=== PATIENT | female | born 1940 | race Caucasian/White ===

== ENCOUNTER 2024-01-21 11:07 | Emergency (ER) | payer OTHER, SELFPAY ==
[2024-01-21 11:32] VITALS: BP 95/73
[2024-01-21 12:01] LABS: % Basophils 0.4 % (0-2); % Eosinophils 1.3 % (0-6); % Immature Granulocytes 0.4 % (0-0.5); % Lymphocytes 20.4 % (20.5-51.1); % Monocytes 9.8 % (1.7-9.3); % Neutrophils 67.7 % (42.2-75.2); Absolute Eosinophils 0.1 10^3/uL (0-0.7); Absolute Lymphocytes 1.9 10^3/uL (1.2-3.4); Absolute Monocytes 0.9 10^3/uL (0.1-0.6); Absolute Neutrophils 6.2 10^3/uL (1.4-6.5); Hematocrit 45.2 % (37.0-47.0); Hemoglobin 14.4 g/dL (12.0-16.0); Mean Corp Hgb Conc. 31.9 g/dL (33.0-37.0); Mean Corpuscular Volume 94.2 fL (81.0-99.0); Mean Platelet Volume 10.3 fL (7.4-10.4); Nucleated Red Blood Cells % 0 %; Platelet Count 172 10^3/uL (130-400); Red Cell Dist. Width 12.5 % (11.5-14.5); White Blood Cell Count 9.1 10^3/uL (4.8-10.8)
[2024-01-21 12:20] LABS: ALT (SGPT) 18 U/L (0-35); AST (SGOT) 22 U/L (14-36); Albumin 3.6 g/dl (3.5-5.0); Alkaline Phosphatase 87 U/L (38-126); Blood Urea Nitrogen 21 mg/dl (7-17); Calcium 10.1 mg/dl (8.4-10.2); Carbon Dioxide 29 mmol/L (22-30); Chloride 102 mmol/L (98-107); Glucose 96 mg/dl (70-99); Sodium 138 mmol/L (135-145); Total Bilirubin 0.5 mg/dl (0.2-1.3); Total Protein 6.3 g/dl (6.3-8.2); eGFR > 60.00
[2024-01-21 12:21] LABS: COVID-19 Antigen Negative (Negative)
[2024-01-21 12:25] LABS: Potassium 4.2 mmol/L (3.5-5.1)
[2024-01-21 12:26] LABS: NT-proBNP 526 pg/ml; Troponin I < 0.012 ng/ml
--- NOTE | 2024-01-21 12:50 | ED.GENMED ---
History of Present Illness
General
Chief Complaint: Cold/Flu/URI Symptoms
Source: patient and family (Daughter)
Exam Limitations: none
Time Seen by Provider: 01/21/24 12:37
Nursing documentation reviewed up to this point in time: agreed with
Travel History
Have you had any contact with someone who has COVID-19?: No
Do you have any symptoms of coronavirus? Fever > 100 degrees, chills, cough, shortness of breath, sore throat, loss of taste or smell, muscle aches, or headache?: No
History of Present Illness
History of Present Illness:
83-year-old female with a past medical history of hypertension, hyperlipidemia, CHF, atrial fibrillation on Eliquis, COPD who presents to the emergency department from home accompanied by her daughter for evaluation of shortness of breath and cough.
Patient reports onset of symptoms he noticed that she started feeling some congestion and had worsening cough. Over the weekend she noticed that she was having increasing shortness of breath and orthopnea. This morning woke up and
symptoms were much more severe and she finally decided to come for evaluation. She says she had said similar symptoms in the past with CHF exacerbations. She sees Dr. García for cardiology. She denies any associated chest pain. She has not noticed
any significant weight gain. She denies any increased leg swelling. She has not had any fevers or chills. Denies any GI symptoms. She reports compliance with all her medications including her diuretic that she currently takes torsemide 20 mg
twice daily and has had no recent adjustments.
Review of Systems
Review of Systems
All Other Systems: ROS reviewed and negative except as documented in HPI and ROS
Constitutional: Denies fever or chills
EENT: Reports other (Nasal congestion); Denies sore throat
Respiratory: Reports cough and trouble breathing
Cardiac: Reports other (Orthopnea); Denies chest pain, diaphoresis or palpitations
ABD/GI: Denies abdominal pain, nausea or vomiting
: Denies flank pain
Musculoskeletal: Reports edema (Chronic but unchanged); Denies neck pain or back pain
Neurological: Denies headache, weakness or numbness
Phy Exam
Physical Exam
Physical Exam:
General: Awake, alert, oriented x3; no acute distress
Head: Normocephalic, atraumatic
Eyes: Conjunctiva normal, EOMI
Throat: Airway intact, handling secretions
Neck: Trachea midline, no JVD noted
Lungs: Pulse ox 95% on room air; respiratory rate 20-24; speaking in full sentences not in distress; she has diffuse bilateral expiratory wheezing with some faint rales at the lung bases, frequent coughing
Heart: Tachycardia with irregularly irregular rhythm, no murmurs, gallops, or rubs
Abd: Soft, non distended, nontender
Neuro: Cranial nerves grossly intact, speech fluid
Skin: no rash, chronic venous stasis changes in the lower extremities
Extremities: +2 edema bilateral lower extremities, equal pulses in all extremities
Scores
Heart Failure Risk
Heart Failure Risk Score: Yes
History of Stroke or TIA: No
History of intubation for respiratory distress: No
Heart rate on ED arrival >/= 110: No
SaO2 <90% on arrival on room air: No
HR >/=110 during 3min walk test (or too ill to perform test): Yes
ECG has acute ischemic changes: No
Urea >/=12mmol/L (BUN 33.6mg/dL): No
Serum CO2>/=35mmol/L: No
Troponin I or T elevated to [place] Level (0.4mg/dL): No
NT-proBNP >/=5,000ng/L (5,000pg/ml): No
HF Risk Score: 2
Admission Status: MEDIUM RISK 9.2% Consider observation or discharge to home with homecare & f/u visit to PCP/[facility], or SNF for treatment
Heart Score for Chest Pain Patients
STEMI patient?: Not applicable
Withdrawal Assessment of Alcohol
Withdrawal Assessment Completed?: Not applicable
Course
Orders/Labs/Results
Orders:
Orders
01/21/24 11:45
ECG [Electrocardiogram (*1)] Urgent
Reason for Study: Atrial Fibrillation
EKG- Treatment ONCE
01/21/24 11:51
COVID-19 Antigen Urgent
Source: Nasal Swab
Complete Blood Count/With Diff Urgent
Comprehensive Metabolic Panel Urgent
NT-proBNP Urgent
Troponin I Urgent
Influenza A+B Rapid Molecular Urgent
LETICIA Source: Nasal Swab
Specimen Description:
01/21/24 12:39
CR Chest - 2 Views Urgent
Comment:
Reason For Exam: cough
01/21/24 12:50
Ipratropium/Albuterol Sulfate [Duoneb] 3 ml INH R NOW STA
01/21/24 12:56
Metoprolol [Lopressor] 5 mg IV NOW STA
01/21/24 14:29
Ipratropium/Albuterol Sulfate [Duoneb] 3 ml INH R NOW STA
MethylPREDNISolone PF [Solu-Medrol Pf] 125 mg IV NOW STA
01/21/24 14:30
Diltiazem HCl [Cardizem] 10 mg IV NOW STA
Abnormal Lab Results
01/21/24
11:51
MCHC 31.9 L g/dL
(33.0-37.0)
Absolute Monos (auto) 0.9 H 10^3/uL
(0.1-0.6)
Lymphocytes % 20.4 L %
(20.5-51.1)
Monocytes % 9.8 H %
(1.7-9.3)
BUN 21 H mg/dl
(7-17)
01/21/24 11:51
01/21/24 11:51
Vital Signs
Initial and Last Documented VS:
Initial Vital Signs
Temp Pulse Resp BP Pulse Ox
36.8 C 88 20 95/73 95
01/21/24 11:32 01/21/24 11:32 01/21/24 11:32 01/21/24 11:32 01/21/24 11:32
Last Documented Vital Signs
Temp Pulse Resp BP Pulse Ox
36.8 C 106 18 102/81 95
01/21/24 11:32 01/21/24 15:30 01/21/24 15:30 01/21/24 15:00 01/21/24 15:30
MDM/Problems Addressed
Differential Diagnosis Includes:
CHF exacerbation, COPD exacerbation, bronchitis, pneumonia, anemia
MDM/Problems Addressed:
83-year-old female with history as above presents for evaluation of worsening cough, congestion, shortness of breath over the past few days. Vital signs significant for slight hypotension to 95/73, tachycardia to the low 100s, mild tachypnea.
Pulse ox acceptable and afebrile. Physical exam as above. Plan to place an IV check labs including a CBC and a CMP, troponin, BNP. Will check viral swabs. Will check chest x-ray. Check an EKG. Provided DuoNeb given that she does have wheezing
and known history of COPD. Will monitor closely and reassess after the above.
Initial labs reviewed: CBC unremarkable, CMP no clinically significant abnormalities. Troponin undetectable. BNP slightly elevated at 526. Viral swabs are negative. EKG shows A-fib with RVR rates in the 100s. Blood pressure initially soft,
improved without intervention here will treat with some Lopressor for rate control. Awaiting chest x-ray.
Chest x-ray shows no pneumonia, no signs of CHF-BNP only slightly elevated at 526�clinical picture really is more consistent with acute COPD exacerbation likely triggered by mild viral illness. She had significant improvement in her wheezing after
DuoNebs and steroids here. Her heart rate has been around 100�she says she is in permanent A-fib. She has a normal pulse ox and her respiratory rate is 14-16 on clinical reassessment with significantly improved wheezing on exam. No clear
indication for admission at this point and patient's strong preference is to be discharged to trial outpatient steroids and nebs. I think this is a reasonable plan. She will follow-up with her primary physician. We spoke about return precautions
and all questions answered.
Chronic conditions affecting care:
COPD, CHF, A-fib
Acute Exacerbation and/or Progression of Chronic Illness:
Acute exacerbation of A-fib�presents in A-fib with RVR treated with Lopressor as above
Acute Exacerbation and/or Progression of Chronic Illness: Arrhythmia
*Radiology
Radiology exam reviewed: preliminary read by ED provider and radiology read reviewed
*Pulse Oximetry
Patient hypoxic: no
*EKG
Interpreted by ED Provider?: Yes
Heart Rate: 112
Rate: tachycardiac
Rhythm: a-fib
[place]: normal axis
Interval: normal interval
QRS Pattern: normal QRS
Ischemia: no ischemia
*Critical Care Note
Total Time (30-74mins, 75-104mins- exclusive of procedures): 31
comment:
Critical care statement: A total of 31 minutes of critical care time was provided for this patient. This includes management of unstable vital signs, evaluation of the patient at bedside, frequent reassessment, discussion with
consultants/hospitalist, and review of pertinent medical records. This time was separate from time utilized to perform any aforementioned documented procedures
Data Reviewed
Review of Other/Old Records Reveals: Labs and Records
Source: patient, records and family
Patient Management
Social determinants of health affecting care: Strong social support
Discussion with other providers: Hospitalist (Discussed with hospitalist)
Escalation/DeEscalation of care consider admission/obs:
Admission indicated
ED Attending Note
-
Portions of this chart may have been created with voice recognition software.� Occasional wrong word or��sound alike� substitutions may have occurred due to the inherent limitations of voice recognition software.
Discharge Plan
Departure
Patient Disposition: Home (Routine Discharge)
Date of Disposition: 01/21/24
Time of Disposition: 15:39
Patient with high blood pressure during this ER visit?: No
Discharge Problem:
COPD exacerbation
Instructions: COPD Exacerbation, Adult ED
Prescriptions:
New
prednisone 50 mg tablet
50 mg PO DAILY Qty: 4 0RF
albuterol sulfate 2.5 mg /3 mL (0.083 %) solution for nebulization
2.5 mg inhalation Q6H Qty: 90 0RF
Referrals:
Marialuisa Patel MD [Family Provider] - Call in 1-3 days for appt
Activity Restrictions/Additional Instructions:
Thank you for visiting the Emergency Department at [facility].
1. Please schedule a follow up appointment as directed. Call first thing tomorrow morning to make an appointment.
2. If indicated, please take your medications as instructed and indicated on discharge paperwork.
3. If any of your symptoms do not improve, or persist, or become more severe within 6-12 hours, please return to the emergency department for further care.
4. Please return to the emergency department if you develop a headache, neck pain/stiffness, fever greater than 100.4F, chest pain, shortness of breath, persistent nausea, vomiting, slurred speech, difficulty walking, numbness/tingling, weakness,
signs of infection or any other symptoms that are worrisome to you.
Please call [phone] if you have any questions.
Interventions
Interventions:
*Risk Screen - Suicide Last Done: 01/21/24 12:49
*General Assessment Last Done: 01/21/24 12:49
ED- Fall Risk Assessment Last Done: 01/21/24 12:49
*ED COVID-19 Vaccine History Last Done: 01/21/24 11:32
ED- Pulmonary Assessment Last Done: 01/21/24 12:49
Discharge Date and Time
Print Language: JAPANESE
[2024-01-21 13:08] VITALS: BP 122/69
[2024-01-21] MEDS: DUONEB 3 ML INH ×2 (13:08→14:50)
[2024-01-21] MEDS: LOPRESSOR 5 MG IV (13:14)
[2024-01-21 14:00] VITALS: BP 112/76
[2024-01-21] MEDS: CARDIZEM 10 MG IV (14:50)
[2024-01-21] MEDS: SOLU-MEDROL PF 125 MG IV (14:50)
[2024-01-21 15:00] VITALS: BP 102/81
== END 2024-01-21 16:08 | disposition home or self-care (01) ==
LOC: EMR 11:07
PROVIDERS: Emergency Medicine; EMERGENCY PHYSICIAN Emergency Medicine; FAMILY PHYSICIAN Family Medicine
DX: J44.1 Chronic obstructive pulmonary disease with (acute) exacerbation (principal); I48.91 Unspecified atrial fibrillation; I50.9 Heart failure, unspecified; I11.0 Hypertensive heart disease with heart failure; I95.9 Hypotension, unspecified; Z11.52 Encounter for screening for COVID-19; Z79.01 Long term (current) use of anticoagulants
CPT/HCPCS: 99291; 96374; 96375 ×2; 94640; 71046; 80053; 83880; 84484; 85025; 87502; 87811; 93005

== ENCOUNTER 2024-08-18 10:10 | Emergency (ER) | payer OTHER, SELFPAY ==
[2024-08-18] VITALS (7 sets, daily range): BP systolic 121–151; BP diastolic 67–92; PULSE 87–106; BMI 46.5
[2024-08-18 11:00] LABS: % Basophils 0.6 % (0-2); % Eosinophils 2.5 % (0-6); % Immature Granulocytes 0.2 % (0-0.5); % Monocytes 8.6 % (1.7-9.3); % Neutrophils 61.1 % (42.2-75.2); Absolute Eosinophils 0.2 10^3/uL (0-0.7); Absolute Lymphocytes 1.7 10^3/uL (1.2-3.4); Absolute Monocytes 0.6 10^3/uL (0.1-0.6); Absolute Neutrophils 3.9 10^3/uL (1.4-6.5); Hematocrit 42.4 % (37.0-47.0); Hemoglobin 13.9 g/dL (12.0-16.0); Mean Corp Hgb Conc. 32.8 g/dL (33.0-37.0); Mean Corpuscular Hgb 29.5 pg (27.0-31.0); Mean Platelet Volume 10.6 fL (7.4-10.4); Nucleated Red Blood Cells % 0 %; Platelet Count 195 10^3/uL (130-400); Red Blood Cell Count 4.71 10^6/uL (4.20-5.40); Red Cell Dist. Width 12.4 % (11.5-14.5); White Blood Cell Count 6.4 10^3/uL (4.8-10.8)
--- NOTE | 2024-08-18 11:09 | ED.GENMED ---
History of Present Illness
General
Chief Complaint: Dizziness
Source: patient
Time Seen by Provider: 08/18/24 10:33
History of Present Illness
History of Present Illness:
83-year-old female presents emergency room complaining of dizziness. Patient states her symptoms began 2 days ago. She was lying in bed and when she sat up she felt very dizzy. She was unable to walk without assistance. She denies headache.
Denies any focal weakness numbness or tingling. Symptoms are definitely worsened by head movement and position. Symptoms have not improved since onset.
Phy Exam
Physical Exam
Physical Exam:
General: Awake, Alert, Oriented X3. No acute distress.
Vitals: unremarkable
Head: Atraumatic
Eyes: Pupils equal, EOMI, horizontal nystagmus
Throat: Airway intact, no exudates
Neck: Trachea midline
Lungs: Clear and equal b/l
Heart: Regular rate, no murmurs
Abd: Soft, Nontender, No pulsatile mass
Neuro: Cranial nerves intact, muscle strength equal bilaterally, cerebellar exam normal
Skin: Warm, dry, no rash
Extremities: pulses equal b/l, no edema
Course
Orders/Labs/Results
Orders:
Orders
08/18/24 10:15
Electrocardiogram (*1) Urgent
Reason for Study: Vertigo / Dizzy
EKG- Treatment ONCE
08/18/24 10:47
Complete Blood Count/With Diff Urgent
Comprehensive Metabolic Panel Urgent
08/18/24 11:08
CT Head W/o Iv Contrast Urgent
Comment:
Reason For Exam: dizziness
PT Consult [Pt Eval And Treat] Urgent
Treatment: vertigo
Activity Level: As Tolerated
Abnormal Lab Results
08/18/24
10:47
MCHC 32.8 L g/dL
(33.0-37.0)
MPV 10.6 H fL
(7.4-10.4)
BUN 21 H mg/dl
(7-17)
Total Protein 6.0 L g/dl
(6.3-8.2)
08/18/24 10:47
08/18/24 10:47
Vital Signs
Initial and Last Documented VS:
Initial Vital Signs
Temp Pulse Resp BP Pulse Ox
98.2 F 94 16 151/85 95
08/18/24 10:12 08/18/24 10:12 08/18/24 10:12 08/18/24 10:12 08/18/24 10:12
Last Documented Vital Signs
Temp Pulse Resp BP Pulse Ox
98.2 F 63 25 144/92 98
08/18/24 10:12 08/18/24 12:25 08/18/24 12:25 08/18/24 12:00 08/18/24 11:22
MDM/Problems Addressed
Differential Diagnosis Includes:
Dehydration, anemia, peripheral vertigo, central vertigo
MDM/Problems Addressed:
Patient's physical exam suggest peripheral vertigo. CT does not show any acute abnormalities. She has no other focal neurologic deficits. Physical therapy consultation was obtained to confirm changes consistent with peripheral vertigo. Patient
feels better after Shai maneuver. Stable for discharge home. Recommend Antivert for persistent symptoms. Prescription given for outpatient physical therapy
*Radiology
Radiology exam reviewed: radiology read reviewed
*Pulse Oximetry
Patient hypoxic: no
*EKG
Interpreted by ED Provider?: Yes
Heart Rate: 93
Rate: normal
Rhythm: a-fib
Interval: normal interval
QRS Pattern: normal QRS
*[employer] Interpretation
Rate: normal
Interpretation: abnormal
Rhythm: a-fib
*Critical Care Note
Total Time (30-74mins, 75-104mins- exclusive of procedures): Not Applicable
ED Attending Note
-
Portions of this chart may have been created with voice recognition software.� Occasional wrong word or��sound alike� substitutions may have occurred due to the inherent limitations of voice recognition software.
Discharge Plan
Departure
Patient Disposition: Home (Routine Discharge)
Date of Disposition: 08/18/24
Time of Disposition: 12:31
Patient with high blood pressure during this ER visit?: Yes
Condition: Good
Discharge Problem:
Benign paroxysmal positional vertigo
Instructions: Vestibular Exercises, Vertigo ED, BLOOD PRESSURE
Prescriptions:
No Action
prednisone 50 mg tablet
50 mg PO DAILY Qty: 4 0RF
albuterol sulfate 2.5 mg /3 mL (0.083 %) solution for nebulization
2.5 mg inhalation Q6H Qty: 90 0RF
Referrals:
Marialuisa Patel MD [Family Provider] -
Activity Restrictions/Additional Instructions:
You have vertigo due to an issue with your inner ear balance system. The exercises performed by the physical therapist will help. You can follow up with them for more outpatient physical therapy. You can also take meclizine, which is an
vppt-[id number]-ffurbun medication, which will help with the vertigo. You can take 25mg every 8 hours.
Interventions
Interventions:
*Risk Screen - Suicide Last Done: 08/18/24 10:41
*General Assessment Last Done: 08/18/24 10:41
*Neglect/Abuse Screening Last Done: 08/18/24 10:41
ED- Fall Risk Assessment Last Done: 08/18/24 11:15
*ED COVID-19 Vaccine History Last Done: 08/18/24 10:40
*Nursing Disposition Last Done: 08/18/24 12:50
ED- Neurological Assessment Last Done: 08/18/24 11:15
ED- Cardiac Assessment Last Done: 08/18/24 11:15
ED Swallowing Screen Last Done: 08/18/24 11:15
Discharge Date and Time
Discharge Date/Time: 08/18/24 12:51
Print Language: SYRIAC
[2024-08-18 11:12] LABS: ALT (SGPT) 16 U/L (0-35); AST (SGOT) 20 U/L (14-36); Albumin 3.6 g/dl (3.5-5.0); Alkaline Phosphatase 61 U/L (38-126); Blood Urea Nitrogen 21 mg/dl (7-17); Calcium 9.8 mg/dl (8.4-10.2); Carbon Dioxide 30 mmol/L (22-30); Chloride 104 mmol/L (98-107); Estimated Creatinine Clearance 60 ml/min; Glucose 98 mg/dl (70-99); Sodium 139 mmol/L (135-145); Total Bilirubin 0.6 mg/dl (0.2-1.3); eGFR > 60.00
== END 2024-08-18 12:51 | disposition home or self-care (01) ==
LOC: EMR 10:10
PROVIDERS: EMERGENCY PHYSICIAN Emergency Medicine; FAMILY PHYSICIAN Family Medicine
DX: H81.10 Benign paroxysmal vertigo, unspecified ear (principal); R03.0 Elevated blood-pressure reading, without diagnosis of hypertension
CPT/HCPCS: 99285; 70450; 80053; 85025; 93005

== ENCOUNTER → 2024-09-08 12:07 | Outpatient (REF) | payer OTHER, SELFPAY ==
[2024-09-08 14:24] LABS: HDL Cholesterol 58 mg/dl; LDL Cholesterol, Calculated 108 mg/dl; Total Cholesterol 184 mg/dl (50-199); Triglyceride 93 mg/dl (10-149); Very Low Density Lipoprotein 18 mg/dl (0-30)
[2024-09-08 14:48] LABS: TSH Reflex To Free T4 2.17 uIU/ml (0.47-4.68)
== END ==
LOC: REG 12:07
PROVIDERS: ATTENDING PHYSICIAN Family Medicine
DX: I10 Essential (primary) hypertension (principal); I48.19 Other persistent atrial fibrillation; I50.32 Chronic diastolic (congestive) heart failure; H81.10 Benign paroxysmal vertigo, unspecified ear
CPT/HCPCS: 36415; 80061; 84443

== ENCOUNTER → 2024-11-27 12:46 | Outpatient (REF) | payer OTHER, SELFPAY | LOC: WDC 12:46 | PROVIDERS: ATTENDING PHYSICIAN Family Medicine | DX: Z12.39 Encounter for other screening for malignant neoplasm of breast (principal); Z12.31 Encounter for screening mammogram for malignant neoplasm of breast | CPT/HCPCS: 77063; 77067 ==

== ENCOUNTER → 2025-01-11 13:17 | Outpatient (REF) | payer OTHER, SELFPAY | LOC: PAVMRI 13:17 | PROVIDERS: ATTENDING PHYSICIAN Orthopaedic Surgery; FAMILY PHYSICIAN Family Medicine | DX: M54.12 Radiculopathy, cervical region (principal) | CPT/HCPCS: 72141 ==

== ENCOUNTER → 2025-05-08 10:06 | Outpatient (REF) | payer OTHER, SELFPAY | LOC: RCS 10:06 | PROVIDERS: ATTENDING PHYSICIAN Internal Medicine; FAMILY PHYSICIAN Family Medicine | DX: I48.19 Other persistent atrial fibrillation (principal); I10 Essential (primary) hypertension; I50.32 Chronic diastolic (congestive) heart failure; I31.39 Other pericardial effusion (noninflammatory) | CPT/HCPCS: 93306 ==

== ENCOUNTER 2025-05-22 11:55 | Emergency (ER) | payer OTHER, SELFPAY ==
[2025-05-22 11:57] VITALS: BP 168/100
[2025-05-22 13:33] LABS: Hematocrit 42.8 % (37.0-47.0); Hemoglobin 13.7 g/dL (12.0-16.0); Mean Corp Hgb Conc. 32.0 g/dL (33.0-37.0); Mean Corpuscular Volume 92.8 fL (81.0-99.0); Nucleated Red Blood Cells % 0 %; Platelet Count 159 10^3/uL (130-400); Red Cell Dist. Width 12.4 % (11.5-14.5)
[2025-05-22 14:11] VITALS: BP 152/83
--- NOTE | 2025-05-22 14:21 | ED.GENMED ---
History of Present Illness
General
Chief Complaint: Urinary Symptoms
Source: patient
Exam Limitations: none
Time Seen by Provider: 05/22/25 13:17
Nursing documentation reviewed up to this point in time: agreed with
History of Present Illness
History of Present Illness:
84-year-old female past medical history of A-fib CHF hypertension hyperlipidemia presenting to the emergency department today with concerns of hematuria over the past 5 days went to see the primary care doctor 2 days ago and was started on Macrobid
for possible UTI. Now having some pain to the left flank which proper to come to the ER. Denies any fevers nausea vomiting chest pain or shortness of breath.
Review of Systems
Review of Systems
Allergies reviewed?: Yes
All Other Systems: ROS reviewed and negative except as documented in HPI and ROS
Phy Exam
Physical Exam
Physical Exam:
GENERAL: Alert , in no apparent distress
EYE: pupils equal and reactive
NECK: Supple, no significant adenopathy.
ENT: o/p clr, mmm.
CARDIAC: Regular rate and rhythm .
LUNGS: Clear breath sounds bilaterally, no acute respiratory distress, no wheezes/rales/rhonchi
ABDOMEN: Soft, without focal tenderness, no r/g, no cvat
NEUROLOGICAL: Alert and oriented, no focal neuro deficits
SKIN: Warm and dry, skin intact.
MUSCULOSKELETAL: No edema, well perfused.
PSYCH: Normal and appropriate interaction.
Course
Orders/Labs/Results
Orders:
Orders
05/22/25 13:19
Complete Blood Count/With Diff Urgent
Comprehensive Metabolic Panel Urgent
05/22/25 13:40
CT Abd/pel Without Iv Or Oral Urgent
Comment:
Reason For Exam: left flank pain
05/22/25 14:10
Urinalysis Reflex To Culture Urgent
Date Specimen was Collected: 05/22/25
Time Specimen was Collected: 14:08
Urine Microscopic Reflex Cult Urgent
Urine Culture Urgent
LETICIA Source: U
Specimen Description:
Date Specimen was Collected: 05/22/25
Time Specimen was Collected: 14:08
05/22/25 15:31
Cefdinir [Omnicef] 300 mg PO NOW STA
Abnormal Lab Results
05/22/25 05/22/25
13:19 14:10
MCHC 32.0 L g/dL
(33.0-37.0)
Chloride 108 H mmol/L
(98-107)
Total Protein 5.7 L g/dl
(6.3-8.2)
Albumin 3.4 L g/dl
(3.5-5.0)
Ur Occult Blood Reflex 4+ A
(Negative)
Leukocyte Esterase Rfl 2+ A
(Negative)
Urine RBC >100 A /HPF
(0-2)
Urine Albumin (Reflex) 3+ A
(Neg - Trace)
05/22/25 13:19
05/22/25 13:19
Vital Signs
Initial and Last Documented VS:
Initial Vital Signs
Temp Pulse Resp BP Pulse Ox
98.4 F 100 16 168/100 98
05/22/25 11:57 05/22/25 11:57 05/22/25 11:57 05/22/25 11:57 05/22/25 11:57
Last Documented Vital Signs
Temp Pulse Resp BP Pulse Ox
98.4 F 82 16 152/83 95
05/22/25 11:57 05/22/25 14:11 05/22/25 14:11 05/22/25 14:11 05/22/25 14:22
MDM/Problems Addressed
MDM/Problems Addressed:
84-year-old female presenting to the emergency department today with concerns of left-sided flank pain in the setting of recently diagnosed UTI currently taking Macrobid over the past 2 days as well as hematuria that started 5 days ago. Here blood
pressure elevated otherwise vital signs are normal. Patient in no distress no reproducible pain to palpation. CT scan showing a large renal pelvic stone as well as a smaller stone in the ureter. No white count otherwise very well-appearing
throughout ER stay not requiring any specific pain medication while here. Urinalysis showing large amount of red blood cells small amount of white blood cells and leuks. The case was discussed thoroughly with urology they recommended outpatient
oral antibiotics and close outpatient follow-up as there is no evidence of obstructing stone requiring emergent surgical removal. Strict return precautions were discussed with the patient she demonstrated understanding
*Pulse Oximetry
SaO2: 95
Oxygen Mode of Delivery: Room air
Patient hypoxic: no (95)
*Critical Care Note
Total Time (30-74mins, 75-104mins- exclusive of procedures): Not Applicable
ED Attending Note
-
Portions of this chart may have been created with voice recognition software.� Occasional wrong word or��sound alike� substitutions may have occurred due to the inherent limitations of voice recognition software.
Discharge Plan
Departure
Patient Disposition: Home (Routine Discharge)
Date of Disposition: 05/22/25
Time of Disposition: 15:31
Patient with high blood pressure during this ER visit?: Yes
Condition: Good
Covid-19: Not Applicable
Discharge Problem:
Kidney stone
Instructions: Blood in the Urine (Hematuria), Adult (DC), BLOOD PRESSURE
Prescriptions:
New
cefpodoxime 200 mg tablet
200 mg PO BID 12 Days Qty: 24 0RF
No Action
prednisone 50 mg tablet
50 mg PO DAILY Qty: 4 0RF
albuterol sulfate 2.5 mg /3 mL (0.083 %) solution for nebulization
2.5 mg inhalation Q6H Qty: 90 0RF
Referrals:
Jamie Andrea MD [Active, Urology] - Follow up in 5-7 days
Marialuisa Patel MD [Family Provider, [facility]]
Activity Restrictions/Additional Instructions:
You came to the emergency department today with concerns of flank pain and urinary symptoms. You do have a large kidney stone. You are also being treated with antibiotics to ensure no progressive infection. Please take as prescribed and follow-up
closely with urology. Return for any worsening, new or concerning symptoms.
Interventions
Interventions:
*Risk Screen - Suicide Last Done: 05/22/25 11:57
*General Assessment Last Done: 05/22/25 13:04
*Neglect/Abuse Screening Last Done: 05/22/25 11:57
*ED- Fall Risk Assessment Last Done: 05/22/25 12:32
*ED COVID-19 Vaccine History Last Done: 05/22/25 12:32
ED-Female Genitourinary Assessment Last Done: 05/22/25 12:33
Discharge Date and Time
Print Language: KINYARWANDA
[2025-05-22 14:29] LABS: ALT (SGPT) 15 U/L (0-35); AST (SGOT) 19 U/L (14-36); Albumin 3.4 g/dl (3.5-5.0); Alkaline Phosphatase 75 U/L (38-126); Blood Urea Nitrogen 17 mg/dl (7-17); Calcium 9.6 mg/dl (8.4-10.2); Carbon Dioxide 29 mmol/L (22-30); Chloride 108 mmol/L (98-107); Glucose 94 mg/dl (70-99); Potassium 4.4 mmol/L (3.5-5.1); Sodium 139 mmol/L (135-145); Total Protein 5.7 g/dl (6.3-8.2); eGFR > 60.00
[2025-05-22 14:33] LABS: Urine Character Cloudy (Clear)
[2025-05-22 14:56] LABS: Urine Red Blood Cell >100 /HPF (0-2)
[2025-05-22] MEDS: OMNICEF 300 MG PO (15:34)
== END 2025-05-22 15:47 | disposition home or self-care (01) ==
LOC: EMR 11:55
PROVIDERS: Physician Assistant; Student in an Organized Health Care Education/Training Program; EMERGENCY PHYSICIAN Student in an Organized Health Care Education/Training Program; FAMILY PHYSICIAN Family Medicine
DX: N20.2 Calculus of kidney with calculus of ureter (principal); I48.91 Unspecified atrial fibrillation; I11.0 Hypertensive heart disease with heart failure; I50.9 Heart failure, unspecified; E78.5 Hyperlipidemia, unspecified
CPT/HCPCS: 99284; 74176; 80053; 81003; 81015; 85025; 87086

== ENCOUNTER 2025-06-26 06:12 | Day surgery (SDC) | payer OTHER, SELFPAY ==
[2025-06-26] VITALS (9 sets, daily range): BP systolic 128–153; BP diastolic 69–118; BMI 44.0
[2025-06-26] MEDS: NORMOSOL-R/PLASMALYTE-A 1000 IV (09:46)
[2025-06-26] MEDS: SUBLIMAZE 25 MCG IV ×2 (11:49→12:02)
[2025-06-26] MEDS: FLOMAX 0.4 MG PO (12:11)
== END 2025-06-26 13:12 | disposition home or self-care (01) ==
LOC: SDS 06:12
PROVIDERS: ATTENDING PHYSICIAN Specialist
DX: N20.0 Calculus of kidney (principal)
CPT/HCPCS: 52356; 74018; 76000; 93005; C1894; C2617

== ENCOUNTER → 2025-09-14 10:05 | Outpatient (REF) | payer OTHER, SELFPAY ==
[2025-09-14 10:55] LABS: Hematocrit 44.6 % (37.0-47.0); Hemoglobin 13.8 g/dL (12.0-16.0); Mean Corp Hgb Conc. 30.9 g/dL (33.0-37.0); Mean Corpuscular Volume 97.6 fL (81.0-99.0); Nucleated Red Blood Cells % 0 %; Platelet Count 171 10^3/uL (130-400); Red Cell Dist. Width 12.7 % (11.5-14.5)
[2025-09-14 11:54] LABS: ALT (SGPT) 17 U/L (0-35); AST (SGOT) 21 U/L (14-36); Albumin 3.6 g/dl (3.5-5.0); Alkaline Phosphatase 74 U/L (38-126); Calcium 10.1 mg/dl (8.4-10.2); Carbon Dioxide 33 mmol/L (22-30); Chloride 104 mmol/L (98-107); Glucose 88 mg/dl (70-99); HDL Cholesterol 52 mg/dl; LDL Cholesterol, Calculated 111 mg/dl; Potassium 4.4 mmol/L (3.5-5.1); Sodium 139 mmol/L (135-145); Total Protein 6.3 g/dl (6.3-8.2); Very Low Density Lipoprotein 16 mg/dl (0-30); eGFR 55.90
[2025-09-14 12:07] LABS: Blood Urea Nitrogen 20 mg/dl (7-17)
== END ==
LOC: REG 10:05
PROVIDERS: ATTENDING PHYSICIAN Family Medicine
DX: I50.32 Chronic diastolic (congestive) heart failure (principal); E66.01 Morbid (severe) obesity due to excess calories; I10 Essential (primary) hypertension
CPT/HCPCS: 36415; 80053; 80061; 85025